=== PATIENT | male | born 1990 | race Hispanic/Latino ===

== ENCOUNTER 2022-01-30 13:30 | Emergency (ER) | payer OTHER, SELFPAY ==
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
[2022-01-30 15:21] VITALS: BP 110/62; O2SAT 100
[2022-01-30 15:22] VITALS: TEMP 97.7
== END 2022-01-30 15:01 | disposition home or self-care (01) ==
LOC: ER 13:30
DX: T22.212A Burn of second degree of left forearm, initial encounter (principal); T22.20XA Burn of second degree of shoulder and upper limb, except wrist and hand, unspecified site, initial encounter; X12.XXXA Contact with other hot fluids, initial encounter
CPT/HCPCS: 99282

== ENCOUNTER 2023-02-09 14:58 | Emergency (ER) | payer SELFPAY ==
--- NOTE | 2023-02-09 16:54 | RAD REPORT ---
EXAM DESCRIPTION: RAD - C Spine Ap/Lat - 02/09/2023 4:46 pm CLINICAL HISTORY: Numbness/tingling;Pain COMPARISON: No comparisons FINDINGS: No acute fracture. Reversal of the normal cervical lordosis. This may be positional or sec ondary to spasm. Uncovertebral joint hypertrophy noted at C5-6 and C6-7. IMPRESSION: No acute osseous abnormality involving the cervical spine. Reversal of normal cervical l ordosis may be due to spasm or positional.
--- NOTE | 2023-02-09 16:54 | RAD REPORT ---
EXAM DESCRIPTION: RAD - Shoulder Right 2 View - 02/09/2023 4:46 pm CLINICAL HISTORY: Pain;Numbness/tingling COMPARISON: No comparisons FINDINGS/IMPRESSION: No acute fracture. No malalignment. No significant focal degenerative changes.
--- NOTE | 2023-02-09 17:20 | ER ---
Nurse's Notes [facility] Name: Rm Lynch Age: 32 yrs Sex: Male : 1990 Arrival Date: 02/09/2023 Time: 14:58 Bed IW3 Private MD: Diagnosis: Dorsalgia, unspecified;Pain in right shoulder;Paresthesia of skin Presentation: 02/09 15:31 Chief complaint: Patient states: his right arm has been getting numb following a ap3 "crick" in his neck that started approx 3 weeks ago. Coronavirus screen: At this time, the client does not indicate any symptoms associated with coronavirus-19. Ebola Screen: No symptoms or risks identified at this time. Initial Sepsis Screen: Does the patient meet any 2 criteria? No. Patient's initial sepsis screen is negative. Does the patient have a suspected source of infection? No. Patient's initial sepsis screen is negative. Risk Assessment: Do you want to hurt yourself or someone else? Patient reports no desire to harm self or others. Onset of symptoms was January 19, 2023. 15:31 Method Of Arrival: Ambulatory ap3 15:31 Acuity: EDGARDO 4 ap3 Triage Assessment: 15:35 Pain: Complains of pain in neck Pain radiates to right arm Pain began three weeks ago. ap3 15:35 General: Appears in no apparent distress. Behavior is calm, cooperative, appropriate ap3 for age. Historical: - Allergies: 15:33 No Known Allergies; ap3 - Home Meds: 15:33 None [Active]; ap3 - PMHx: 15:33 None; ap3 - Immunization history:: Client reports having NOT received the Covid vaccine. - Social history:: Smoking status: Patient reports the use of cigarette tobacco products, smokes one-half pack cigarettes per day, Patient uses street drugs, marijuana. Screenin:34 [facility] ED Fall Risk Assessment (Adult) History of falling in the last 3 months, ap3 including since admission No falls in past 3 months (0 pts). Abuse screen: Denies threats or abuse. Nutritional screening: No deficits noted. Tuberculosis screening: No symptoms or risk factors identified. Assessment: 17:31 Reassessment: Patient appears in no apparent distress at this time. Patient is alert, nj1 oriented x 3, equal unlabored respirations, skin warm/dry/pink. Vital Signs: 15:34 Pulse 86; Resp 17; Temp 97.4; Pulse Ox 100% ; Weight 70.31 kg; Height 5 ft. 8 in. ; ap3 Pain 8/10; 15:35 BP 114 / 74; ap3 15:34 Body Mass Index 23.57 (70.31 kg, 172.72 cm) ap3 15:34 Pain Scale: Adult ap3 ED Course: 14:59 Patient arrived in ED. am2 15:29 Eusebio Reynolds PA is PHCP. cp 15:29 Eusebio Crouch MD is Attending Physician. cp 15:33 Triage completed. ap3 15:34 Arm band placed on right wrist. ap3 16:48 XRAY Shoulder RIGHT 2 view In Process Unspecified. EDMS 16:48 XRAY C Spine Ap/lat In Process Unspecified. EDMS 17:32 Patient did not have IV access during this emergency room visit. nj1 17:32 No provider procedures requiring assistance completed. nj1 Administered Medications: No medications were administered Medication: 17:32 VIS not applicable for this client. nj1 Outcome: 17:19 Discharge ordered by . cp 17:31 Discharged to home ambulatory. nj1 17:31 Condition: stable 17:31 Discharge instructions given to patient, Instructed on discharge instructions, follow up and referral plans. medication usage, Demonstrated understanding of instructions, follow-up care, medications, Prescriptions given X 2. 17:32 Patient left the ED. nj1 Signatures: Dispatcher [employer] EDMS Eusebio Reynolds PA PA Annmarie Rangel am2 Annmarie Roque RN RN ap3 Meghana Vargas RN RN nj1
--- NOTE | 2023-02-09 17:20 | EDPHYS ---
Physician Documentation [facility] Name: Rm Lynch Age: 32 yrs Sex: Male : 1990 Arrival Date: 02/09/2023 Time: 14:58 Bed IW3 Private MD: ED Physician Eusebio Crouch HPI: 02/09 15:45 This 32 yrs old Male presents to ER via Ambulatory with complaints of Numbness cp Of Arm. 15:45 The patient or guardian complains of pain, that is acute, numbness. The complaints cp affect the right arm. Context: resulted from unknown cause. Onset: The symptoms/episode began/occurred 3 week(s) ago. Treatment prior to arrival includes: no previous treatment. Associated signs and symptoms: Pertinent negatives: deformity, fever, weakness, injury. Patient reports pain to right side of neck and upper back for past 3 weeks with intermittent pain and numbness down right arm. Historical: - Allergies: 15:33 No Known Allergies; ap3 - Home Meds: 15:33 None [Active]; ap3 - PMHx: 15:33 None; ap3 - Immunization history:: Client reports having NOT received the Covid vaccine. - Social history:: Smoking status: Patient reports the use of cigarette tobacco products, smokes one-half pack cigarettes per day, Patient uses street drugs, marijuana. Vital Signs: 15:34 Pulse 86; Resp 17; Temp 97.4; Pulse Ox 100% ; Weight 70.31 kg; Height 5 ft. 8 in. ; ap3 Pain 8/10; 15:35 BP 114 / 74; ap3 15:34 Body Mass Index 23.57 (70.31 kg, 172.72 cm) ap3 15:34 Pain Scale: Adult ap3 MDM: 15:36 Patient medically screened. cp 02/09 15:35 Order name: XRAY Shoulder RIGHT 2 view; Complete Time: 17:16 cp 02/09 17:17 Interpretation: Reviewed. cp 02/09 15:35 Order name: XRAY C Spine Ap/lat; Complete Time: 17:16 cp 02/09 17:17 Interpretation: Report reviewed. cp Administered Medications: No medications were administered Disposition Summary: 02/09/23 17:19 Discharge Ordered Location: Home cp Problem: new cp Symptoms: are unchanged cp Condition: Stable cp Diagnosis - Dorsalgia, unspecified cp - Pain in right shoulder cp - Paresthesia of skin cp Followup: cp - With: Private Physician - When: 2 - 3 days - Reason: Recheck today's complaints Discharge Instructions: - Discharge Summary Sheet cp - Acute Back Pain, Adult cp - Paresthesia cp - Shoulder Pain cp - Shoulder Range of Motion Exercises cp Forms: - Medication Reconciliation Form cp - Thank You Letter cp - Antibiotic Education cp - Prescription Opioid Use cp Prescriptions: - Cyclobenzaprine 10 mg Oral Tablet - take 1 tablet by ORAL route every 8 hours As needed; 30 tablet; Refills: 0, cp Product Selection Permitted - Diclofenac Sodium 75 mg Oral Tablet Sustained Release - take 1 tablet by ORAL route 2 times per day; 30 tablet; Refills: 0, Product cp Selection Permitted Signatures: Dispatcher [employer] EDMS Eusebio Reynolds PA PA cp Prokisch, Amanda RN RN ap3
[2023-02-09 17:39] VITALS: TEMP 97.4; O2SAT 100
[2023-02-09 17:40] VITALS: BP 114/74
== END 2023-02-09 17:32 | disposition home or self-care (01) ==
LOC: ER 14:58
DX: M54.9 Dorsalgia, unspecified (principal); M25.511 Pain in right shoulder; R20.2 Paresthesia of skin
CPT/HCPCS: 72040; 99283

== ENCOUNTER 2024-08-19 17:31 | Emergency (ER) | payer OTHER, SELFPAY ==
[2024-08-19] MEDS ORDERED: levETIRAcetam 1,000 MG in NA CHLORIDE 0.9% 100 ML IV ONE (18:00)
[2024-08-19 18:24] LABS: Absolute Monocytes 0.7 K/uL (0.1-1.3); Basophils % 0.2 % (0-1.3); Eosinophils % 0.3 % (0-4.4); Hematocrit 47.1 % (39.6-49.0); Hemoglobin 15.8 g/dL (13.6-17.9); Lymphocytes % 7.7 % (15.3-44.8); MCH 32.9 pg (27.0-35.0); MCHC 33.6 g/dL (32.0-36.0); MPV 8.8 fL (7.6-11.3); Monocytes % 5.1 % (3.3-12.3); Neutrophils % 86.7 % (41.7-73.7); Platelets 173 thou/uL (152-406); Red Cell Distribution Width 13.8 % (12.1-15.2)
--- NOTE | 2024-08-19 18:33 | RAD REPORT ---
EXAM: CT Head Brain Wo Cont HISTORY: SEIZURE COMPARISON: None TECHNIQUE: Multiple contiguous axial images were obtained for a CT of the brain without contrast. Sag ittal and coronal reformats were performed. One or more of the following dose reduction techniques were used: Automated exposure control, adjus tment of the mA and kV according to patient size, and iterative reconstruction. Unless otherwise specified, incidental findings do not require dedicated imaging follow-up. FINDINGS: No evidence of hydrocephalus, intracranial hemorrhage, or extra-axial fluid collection. The brain is normal in morphology. The calvarium is intact. The visualized paranasal sinuses and mastoid air cells are essentially clear . IMPRESSION: No evidence of acute intracranial abnormality.
[2024-08-19 18:39] LABS: ALT/SGPT 20 U/L (16-61); AST/SGOT 15 U/L (15-37); Albumin 3.9 g/dL (3.4-5.0); Alkaline Phosphatase 82 U/L (45-117); Anion Gap 13.4 mEq/L (5.0-15.0); BUN Blood Urea Nitrogen 8 mg/dL (7-18); Bicarbonate 21 mEq/L (21-32); Bilirubin Direct < 0.2 mg/dL (0-0.2); Bilirubin Indirect, Calculated 0.2 mg/dL (0.2-0.8); Bilirubin Total 0.4 mg/dL (0.2-1.0); Globulin 3.9 g/dL (2.3-3.5); Glomerular Filtration Rate 78 ml/min (=/>90); Glucose Level 118 mg/dL (74-106); Magnesium 2.4 mg/dL (1.6-2.4); Potassium 3.4 mEq/L (3.5-5.1); Protein, Total 7.8 g/dL (6.4-8.2); Sodium Level 139 mEq/L (136-145)
[2024-08-19] MEDS ORDERED: POTASSIUM 25 MEQ EFFERV TAB ONE (19:22)
--- NOTE | 2024-08-19 19:28 | EDPHYS ---
Physician Documentation [facility] Name: Rm Lynch Age: 34 yrs Sex: Male : 1990 Arrival Date: 08/19/2024 Time: 17:31 Bed 5 Private MD: ED Physician Henri Yanez HPI: 08/19 19:14 This 34 yrs old Male presents to ER via EMS with complaints of Seizure. sb4 19:14 The patient presents after having a single isolated seizure, that lasted an unknown sb4 period of time, after having a possible seizure episode, no tonic-clonic activity was appreciated, no post-ictal period is described, the episode(s) was witnessed, by family. Character of seizure(s): Loss of consciousness: the patient did not lose consciousness, Motor activity: "tensed up", Incontinence: none, Apnea: the patient did not experience apnea, Circulation: the patient did not experience evidence of pulse disturbance, Eye movements: are unknown. Seizure onset: just prior to arrival. Context: the seizure(s) was witnessed, by family, occurred at home, Contributing factors: sleep deprivation. Seizure Hx: Original onset: 3 year(s) ago, Cause: unknown, Last seizure: The patient's last seizure was approximately 1 year(s) ago, Usual frequency: irregular frequency, roughly every 1 year(s), Seizure medications: none. Associated injury: The patient did not suffer any apparent associated injury. EMS care: none. Current symptoms: Currently, the patient is not experiencing any symptoms. Historical: - Allergies: 17:39 No Known Allergies; ph - PMHx: 17:40 undiagnosed seizures; back pain; ph - Immunization history:: Adult Immunizations unknown. - Infectious Disease History:: Denies. - Social history:: Smoking status: Patient reports the use of cigarette tobacco products, Reported history of juuling and/or vaping. Patient uses alcohol, occasionally. street drugs, marijuana, Xanax. ROS: 19:14 Constitutional: Negative for fever, chills, and weight loss, sb4 19:14 Neuro: Positive for seizure activity, 19:14 All other systems are negative, Exam: 19:14 Constitutional: This is a well developed, well nourished patient who is awake, alert, sb4 and in no acute distress. Head/Face: Normocephalic, atraumatic. Eyes: Extra-ocular motions intact. Periorbital areas with no swelling, redness, or edema. ENT: Mucous membranes moist. Cardiovascular: Regular rate and rhythm with a normal S1 and S2. Respiratory: No increased work of breathing, no retractions or nasal flaring. Abdomen/GI: Soft, non-tender, no distension. Neuro: Awake and alert, GCS 15, oriented to person, place, time, and situation. Motor strength 5/5 in all extremities. Sensory grossly intact. 19:14 Neuro: seizure activity, is not displayed by the patient, not post ictal, Vital Signs: 17:36 BP 127 / 77; Pulse 85; Resp 18; Temp 97.8; Pulse Ox 98% on R/A; Weight 70.31 kg; Height ph 5 ft. 8 in. ; 18:23 BP 127 / 61; Pulse 61; Resp 18; Pulse Ox 99% on R/A; ph 19:26 BP 116 / 69; Pulse 55; Resp 17; Pulse Ox 99% ; cp4 17:36 Body Mass Index 23.57 (70.31 kg, 172.72 cm) ph Pool Coma Score: 17:41 Eye Response: spontaneous(4). Motor Response: obeys commands(6). Verbal Response: ph oriented(5). Total: 15. MDM: 17:36 Medical Screening Exam initiated sb4 19:26 Data reviewed: vital signs, nurses notes, EMS record, lab test result(s), radiologic sb4 studies, and as a result, I will discharge patient. Counseling: I had a detailed discussion with the patient and/or guardian regarding the historical points, exam findings, and any diagnostic results supporting the discharge/admit diagnosis, lab results, radiology results, the need for outpatient follow up, a neurologist, to return to the emergency department if symptoms worsen or persist or if there are any questions or concerns that arise at home. 08/19 17:36 Order name: Basic Metabolic Panel; Complete Time: 18:40 sb4 08/19 17:36 Order name: CBC with Diff; Complete Time: 18:29 sb4 08/19 17:36 Order name: Hepatic Function; Complete Time: 18:40 sb4 08/19 17:36 Order name: Magnesium; Complete Time: 18:40 sb4 08/19 17:36 Order name: CT Head Brain wo Cont; Complete Time: 18:34 sb4 08/19 17:36 Order name: Cardiac monitoring; Complete Time: 17:42 sb4 08/19 17:36 Order name: IV Saline Lock; Complete Time: 18:18 sb4 08/19 17:36 Order name: Labs collected and sent; Complete Time: 18:18 sb4 08/19 17:36 Order name: O2 Per Protocol; Complete Time: 17:42 sb4 08/19 17:36 Order name: O2 Sat Monitoring; Complete Time: 17:42 sb4 Administered Medications: 18:18 Drug: Keppra IV 1000 mg IV at calculated rate once Route: IV; Rate: calculated rate; ph Site: left antecubital; 18:51 Follow up: Response: No adverse reaction; IV Status: Completed infusion ph 19:25 Drug: Potassium PO Effervescent Tablet 25 mEq PO once; dissolve in 4 ounces of water or cp4 juice Route: PO; 19:36 Follow up: Response: No adverse reaction cp4 Disposition: 19:43 Co-signature as Attending Physician, Henri Yanez MD I reviewed the patient's care rn provided by the Advanced Practice Provider and agree with the diagnosis and treatment plan. Disposition Summary: 08/19/24 19:27 Discharge Ordered Notes: Location: Home sb4 Problem: new sb4 Symptoms: have improved sb4 Condition: Stable sb4 Diagnosis - Other seizures sb4 Followup: sb4 - With: Dominic Chaney MD - When: 2 - 3 days - Reason: Further diagnostic work-up, Recheck today's complaints, Re-evaluation by your physician Followup: sb4 - With: Xander Pollard MD - When: 2 - 3 days - Reason: Further diagnostic work-up, Recheck today's complaints, Re-evaluation by your physician Discharge Instructions: - Discharge Summary Sheet sb4 - Electroencephalogram, Adult sb4 - Seizure, Adult sb4 Forms: - Patient Portal Instructions sb4 - Leadership Thank You Letter sb4 Prescriptions: - Keppra 500 mg Oral Tablet - take 1 tablet ORAL route every 12 hours; 20 tablet; Refills: 0, Product sb4 Selection Permitted Signatures: Dispatcher [employer] Henri Shell MD MD rn Hall, Patricia, RN RN ph Brown, Sophia, PA-C PASara sb4 Ashley Marx cp4 Corrections: (The following items were deleted from the chart) 17:37 17:37 Head Brain Wo [id number].RAD.[id number] ordered. EDMS EDMS
--- NOTE | 2024-08-19 19:28 | ER ---
Nurse's Notes [facility] Name: Rm Lynch Age: 34 yrs Sex: Male : 1990 Arrival Date: 08/19/2024 Time: 17:31 Bed 5 Private MD: Diagnosis: Other seizures Presentation: 08/19 17:36 Chief complaint: EMS states: Had a witnessed seizure at home, has had seizures in the ph past but has not been seen by neurologist or placed on seizure medication, does take Xanax, last took it yesterday. Pt currently A\T\O. Coronavirus screen: Vaccine status: Patient reports being unvaccinated. Ebola Screen: No symptoms or risks identified at this time. Initial Sepsis Screen: Does the patient meet any 2 criteria? No. Patient's initial sepsis screen is negative. Does the patient have a suspected source of infection? No. Patient's initial sepsis screen is negative. Risk Assessment: Do you want to hurt yourself or someone else? Patient reports no desire to harm self or others. Onset of symptoms was August 19, 2024. 17:36 Method Of Arrival: EMS: [facility] 17:36 Acuity: EDGARDO 2 ph Triage Assessment: 17:41 General: Appears in no apparent distress. comfortable, well groomed, Behavior is calm, ph cooperative, appropriate for age. Pain: Denies pain. Neuro: Level of Consciousness is awake, alert, obeys commands, Oriented to person, place, time, situation, Seizure activity reported prior to arrival. Cardiovascular: Capillary refill < 3 seconds in bilateral fingers Patient's skin is warm and dry. Respiratory: Airway is patent Respiratory effort is even, unlabored, Respiratory pattern is regular, symmetrical. Derm: Skin is pink, warm \T\ dry. Historical: - Allergies: 17:39 No Known Allergies; ph - PMHx: 17:40 undiagnosed seizures; back pain; ph - Immunization history:: Adult Immunizations unknown. - Infectious Disease History:: Denies. - Social history:: Smoking status: Patient reports the use of cigarette tobacco products, Reported history of juuling and/or vaping. Patient uses alcohol, occasionally. street drugs, marijuana, Xanax. Screenin:19 [facility] ED Fall Risk Assessment (Adult) History of falling in the last 3 months, ph including since admission Yes- physiologic fall (2 pts) Confusion or Disorientation No (0 pts) Intoxicated or Sedated No (0 pts) Impaired Gait No (0 pts) Mobility Assist Device Used No (0 pt) Altered Elimination No (0 pt) Score/Fall Risk Level 0 - 2 = Low Risk Oriented to surroundings, Maintained a safe environment, Hourly rounding (assess needs \T\ fall precautionary measures) done. Abuse screen: Denies threats or abuse. Has been threatened or abused. Nutritional screening: No deficits noted. Tuberculosis screening: No symptoms or risk factors identified. Assessment: 18:19 Reassessment: Patient appears in no apparent distress at this time. Patient and/or ph family updated on plan of care and expected duration. Pain level reassessed. Patient is alert, oriented x 3, equal unlabored respirations, skin warm/dry/pink. General: SEE TRIAGE ASSESSMENT. Vital Signs: 17:36 BP 127 / 77; Pulse 85; Resp 18; Temp 97.8; Pulse Ox 98% on R/A; Weight 70.31 kg; Height ph 5 ft. 8 in. ; 18:23 BP 127 / 61; Pulse 61; Resp 18; Pulse Ox 99% on R/A; ph 19:26 BP 116 / 69; Pulse 55; Resp 17; Pulse Ox 99% ; cp4 17:36 Body Mass Index 23.57 (70.31 kg, 172.72 cm) ph Pool Coma Score: 17:41 Eye Response: spontaneous(4). Motor Response: obeys commands(6). Verbal Response: ph oriented(5). Total: 15. ED Course: 17:35 Patient arrived in ED. sb4 17:35 Luiza Orellana PA-C [facility]. sb4 17:36 Henri Yanez MD is Attending Physician. sb4 17:36 Shauna Obregon, ELIZABET is Primary Nurse. ph 17:39 Triage completed. ph 17:58 CT Head Brain wo Cont In Process Unspecified. EDMS 18:18 Basic Metabolic Panel Sent. ph 18:18 CBC with Diff Sent. ph 18:18 Hepatic Function Sent. ph 18:18 Magnesium Sent. ph 18:18 Arm band placed on Patient placed in an exam room, on a stretcher, on environmental monitoring technician, ph on pulse oximetry. 18:20 Patient has correct armband on for positive identification. Provided Education on: Use ph of call light and estimated time for test results. Client placed on continuous cardiac and pulse oximetry monitoring. NIBP monitoring applied. monitor worker on. Door closed. Noise minimized. Warm blanket given. Pillow given. 18:23 No provider procedures requiring assistance completed. ph 19:26 Dominic Chaney MD is Referral Physician. sb4 19:27 Xander Pollard MD is Referral Physician. sb4 19:35 intact, bleeding controlled, No redness/swelling at site. Pressure dressing applied. cp4 Administered Medications: 18:18 Drug: Keppra IV 1000 mg IV at calculated rate once Route: IV; Rate: calculated rate; ph Site: left antecubital; 18:51 Follow up: Response: No adverse reaction; IV Status: Completed infusion ph 19:25 Drug: Potassium PO Effervescent Tablet 25 mEq PO once; dissolve in 4 ounces of water or cp4 juice Route: PO; 19:36 Follow up: Response: No adverse reaction cp4 Medication: 18:23 VIS not applicable for this client. ph Outcome: 19:27 Discharge ordered by . sb4 19:35 Discharged to home ambulatory, cp4 19:35 Condition: stable 19:35 Discharge instructions given to patient, Instructed on discharge instructions, follow up and referral plans. medication usage, Demonstrated understanding of instructions, follow-up care, medications, Prescriptions given X 1, 19:37 Patient left the ED. cp4 Signatures: Dispatcher [employer] Shauna Moore RN RN ph Brown, Sophia, SHERIDAN SWARTZ sbAshley Fernando
[2024-08-20 02:26] VITALS: TEMP 97.8
[2024-08-20 02:27] VITALS: O2SAT 99
[2024-08-20 02:28] VITALS: BP 116/69
== END 2024-08-19 19:37 | disposition home or self-care (01) ==
LOC: ER 17:31
DX: G40.89 Other seizures (principal); Z72.0 Tobacco use
CPT/HCPCS: 96365; 85025; 80048; 36415; 83735; 80076; 70450; 99285; J1953